=== PATIENT | female | born 1985 | race Caucasian/White ===

== ENCOUNTER 2016-12-12 07:30 | Emergency (ER) | payer OTHER ==
[~2016-12-12] VITALS: Ht 157.5 cm; Wt 68.2 kg
[2016-12-12] MEDS ORDERED: SODIUM CHLORIDE 0.9% 1,000 ML IV ONE (08:20)
[2016-12-12] MEDS ORDERED: KETOROLAC TROMETHAMINE 30 MG/ML VIAL IVP ONE (08:30)
[2016-12-12] MEDS ORDERED: ONDANSETRON HCL 4 MG/2 ML VIAL IVP ONE (08:30)
[2016-12-12 08:36] LABS: BASOPHILS # (AUTO) 0.05 K/uL (0.00-0.20); BASOPHILS % (AUTO) 0.5 % (0.0-2.0); EOSINOPHILS # (AUTO) 0.15 K/uL (0.00-0.70); EOSINOPHILS % (AUTO) 1.55 % (1.0-6.0); HEMOGLOBIN 11.8 g/dL (12.0-16.0); LYMPHOCYTES # (AUTO) 2.6 K/uL (1.0-4.8); LYMPHOCYTES % (AUTO) 26.3 % (22.0-44.0); MEAN CORPUSCULAR HEMOGLOBIN 32.1 pg (26.0-34.0); MEAN CORPUSCULAR HGB CONC 33.7 G/dL (31.0-37.0); MEAN CORPUSCULAR VOLUME 95 fL (80-100); MONOCYTES # (AUTO) 0.6 K/uL (0.1-1.0); NEUTROPHILS # (AUTO) 6.5 K/uL (1.8-7.7); NEUTROPHILS % (AUTO) 65.7 % (40.0-70.0); PLATELET COUNT (AUTO) 165 K/uL (150-450); RED BLOOD CELL COUNT(AUTO) 3.67 MIL/uL (4.00-5.20); WHITE BLOOD COUNT (AUTO) 9.9 K/uL (4.5-11.0)
[2016-12-12 08:45] LABS: ANION GAP 7 mmol/L (8-16); CARBON DIOXIDE 26 mmol/L (22-29); CHLORIDE 104 mmol/L (98-107); CREATININE 0.93 mg/dL (0.60-1.30); GLOMERULAR FILTR. RATE CALC > 60 mL/min (>60); POTASSIUM 3.7 mmol/L (3.5-5.1); SODIUM SERUM 137 mmol/L (136-145); UREA NITROGEN, BLOOD 10 mg/dL (7-18)
[2016-12-12 09:12] LABS: ALANINE AMINOTRANSFERASE 21 U/L (12-78); ALBUMIN 3.1 g/dL (3.4-5.0); ASPARTATE AMINOTRANSFERASE 15 U/L (15-37); BILIRUBIN,TOTAL 0.2 mg/dL (0.1-1.0); TOTAL PROTEIN, SERUM 6.7 g/dL (6.4-8.2)
[2016-12-12 09:20] LABS: APPEARANCE,URINE CLOUDY (CLEAR); GLUCOSE, URINE (UA) NEGATIVE (NEGATIVE); KETONES,URINE NEGATIVE (NEGATIVE); LEUKOCYTE ESTERASE ,URINE NEGATIVE (NEGATIVE); OCCULT BLOOD,URINE NEGATIVE (NEGATIVE); PROTEIN,URINE NEGATIVE (NEGATIVE)
[2016-12-12 09:41] LABS: ADD UA MICROSCOPIC YES
[2016-12-12 09:42] LABS: RBC,URINE 0-2 /HPF (0-2); SQUAMOUS EPITHELIAL CELL,UR Few /LPF (None Seen); WBC,URINE 0-2 /HPF (0-5)
[2016-12-12] MEDS ORDERED: NITROFURANTOIN/NITROFURAN MAC 100 MG CAPSULE [MACROBID] PO ONE (10:15)
[2016-12-12] MEDS ORDERED: CEPHALEXIN MONOHYDRATE 500 MG CAPSULE PO ONE (10:45)
[2016-12-12 10:50] VITALS: BP 120/74
[2016-12-17 02:11] LABS: GC DNA N.A. AMPLIFY Negative (Negative)
== END 2016-12-12 11:33 | disposition home or self-care (01) ==
LOC: EMS 07:34
DX: O23.41 Unspecified infection of urinary tract in pregnancy, first trimester (principal); Z64.0 Problems related to unwanted pregnancy; Z3A.00 Weeks of gestation of pregnancy not specified
CPT/HCPCS: 36415; 71010; 80053; 81001; 83690; 84702; 85025; 87077; 87086; 87186; 87491; 87591; 96361; 96374; 96375; 99285; J1885; J2405; J7030

== ENCOUNTER 2017-05-20 15:47 | Emergency (ER) | payer OTHER ==
[~2017-05-20] VITALS: Ht 160 cm; Wt 63.6 kg
[2017-05-20 16:30] LABS: APPEARANCE,URINE CLOUDY (CLEAR); BILIRUBIN,URINE NEGATIVE (NEGATIVE); GLUCOSE, URINE (UA) NEGATIVE (NEGATIVE); KETONES,URINE TRACE mg/dL (NEGATIVE); LEUKOCYTE ESTERASE ,URINE MODERATE (NEGATIVE); NITRATE,URINE NEGATIVE (NEGATIVE); OCCULT BLOOD,URINE TRACE (NEGATIVE); PH,URINE 6.5 (5.0-8.0); PROTEIN,URINE NEGATIVE (NEGATIVE)
[2017-05-20 16:45] LABS: BACTERIA,URINE Few /HPF (None Seen); RBC,URINE 0-2 /HPF (0-2); SQUAMOUS EPITHELIAL CELL,UR Many /LPF (None Seen)
[2017-05-20] MEDS ORDERED: SODIUM CHLORIDE 0.9% 1,000 ML IV ONE (16:45)
[2017-05-20] MEDS ORDERED: KETOROLAC TROMETHAMINE 30 MG/ML VIAL IVP ONE (16:45)
[2017-05-20] MEDS ORDERED: ONDANSETRON HCL 4 MG/2 ML VIAL IVP ONE (17:00)
[2017-05-20 17:04] LABS: BASOPHILS % (AUTO) 0.4 % (0.0-2.0); EOSINOPHILS % (AUTO) 0.1 % (1.0-6.0); HEMATOCRIT 37.9 % (36-46); HEMOGLOBIN 12.7 g/dL (12.0-16.0); LYMPHOCYTES # (AUTO) 0.7 K/uL (1.0-4.8); LYMPHOCYTES % (AUTO) 10.1 % (22.0-44.0); MEAN CORPUSCULAR HEMOGLOBIN 31.1 pg (26.0-34.0); MEAN CORPUSCULAR HGB CONC 33.5 G/dL (31.0-37.0); MEAN CORPUSCULAR VOLUME 93 fL (80-100); MONOCYTES % (AUTO) 13.8 % (2.0-9.0); NEUTROPHILS # (AUTO) 5.3 K/uL (1.8-7.7); NEUTROPHILS % (AUTO) 75.6 % (40.0-70.0); PLATELET COUNT (AUTO) 183 K/uL (150-450); RED BLOOD CELL COUNT(AUTO) 4.07 MIL/uL (4.00-5.20); RED CELL DISTRIBUTION WIDTH 13.6 % (11.5-14.5)
[2017-05-20 17:10] LABS: ANION GAP 12 mmol/L (8-16); CALCIUM, TOTAL 8.9 mg/dL (8.8-10.5); CARBON DIOXIDE 26 mmol/L (22-29); CHLORIDE 103 mmol/L (98-107); CREATININE 1.01 mg/dL (0.60-1.30); GLOMERULAR FILTR. RATE CALC > 60 mL/min (>60); GLUCOSE,RANDOM 76 mg/dL (70-110); POTASSIUM 3.6 mmol/L (3.5-5.1); SODIUM SERUM 141 mmol/L (136-145); UREA NITROGEN, BLOOD 11 mg/dL (7-18)
[2017-05-20 17:15] LABS: ALANINE AMINOTRANSFERASE 32 U/L (12-78); ALBUMIN 3.9 g/dL (3.4-5.0); ALKALINE PHOSPHATASE 54 U/L (46-116); ASPARTATE AMINOTRANSFERASE 24 U/L (15-37); BILIRUBIN,TOTAL 0.3 mg/dL (0.1-1.0); TOTAL PROTEIN, SERUM 7.3 g/dL (6.4-8.2)
[2017-05-20 19:19] VITALS: BP 110/78
[2017-06-13] MEDS ORDERED: PANT40TA25 PO (18:41)
== END 2017-05-20 19:20 | disposition home or self-care (01) ==
LOC: EMS 15:49
DX: N39.0 Urinary tract infection, site not specified (principal); J02.9 Acute pharyngitis, unspecified; F17.200 Nicotine dependence, unspecified, uncomplicated
CPT/HCPCS: 36415; 76856; 80053; 81001; 84703; 85025; 87077; 87086; 87186; 96361; 96374; 96375; 99285; J1885; J2405; J7030

== ENCOUNTER 2017-09-05 07:26 | Emergency (ER) | payer OTHER ==
[~2017-09-05] VITALS: Ht 157.5 cm; Wt 63.6 kg
[~2017-09-05 07:26] MED LIST: PANT40TA25 PO
[2017-09-05 07:28] VITALS: BP 101/84
[2017-09-05 08:19] LABS: APPEARANCE,URINE CLEAR (CLEAR); BILIRUBIN,URINE NEGATIVE (NEGATIVE); GLUCOSE, URINE (UA) NEGATIVE (NEGATIVE); KETONES,URINE NEGATIVE (NEGATIVE); LEUKOCYTE ESTERASE ,URINE NEGATIVE (NEGATIVE); NITRATE,URINE NEGATIVE (NEGATIVE); OCCULT BLOOD,URINE NEGATIVE (NEGATIVE); PROTEIN,URINE NEGATIVE (NEGATIVE); UROBILINOGEN,URINE 0.2 mg/dL (<=1.0)
== END 2017-09-05 09:39 | disposition left against medical advice (07) ==
LOC: EMS 07:28
DX: R10.10 Upper abdominal pain, unspecified (principal); R11.2 Nausea with vomiting, unspecified; F12.90 Cannabis use, unspecified, uncomplicated; Z53.21 Procedure and treatment not carried out due to patient leaving prior to being seen by health care provider

== ENCOUNTER 2018-02-07 16:49 | Emergency (ER) | payer SELFPAY ==
[~2018-02-07] VITALS: Ht 157.5 cm; Wt 156.0 kg
[2018-02-07] MEDS ORDERED: LIDOCAINE 1% 10 ML VIAL INJ ONE (18:00)
[2018-02-07] MEDS ORDERED: POVIDONE-IODINE 10% 15 ML SOLUTION UD TP ONE (18:00)
[2018-02-07] MEDS ORDERED: HYDROCODONE/ACETAMINOPHEN 5-325 MG TABLET PO ONE (18:15)
[2018-02-07 20:36] VITALS: BP 119/71
== END 2018-02-07 20:45 | disposition home or self-care (01) ==
LOC: EMS 16:50
DX: L02.411 Cutaneous abscess of right axilla (principal); F12.90 Cannabis use, unspecified, uncomplicated
CPT/HCPCS: 10060; 99283; J3490

== ENCOUNTER → 2018-06-14 | Emergency (ER) | payer MEDICAID ==
[~2018-06-14] VITALS: Ht 157.5 cm; Wt 68.2 kg
[~2018-06-14] MED LIST changes: +DEXAMETHASONE SOD PHOS 4 MG/ML 5 ML VIAL IM ONE; -PANT40TA25 PO
[2018-06-14 13:07] VITALS: BP 129/85
== END | disposition home or self-care (01) ==
LOC: EMS 09:59
DX: R21 Rash and other nonspecific skin eruption (principal); R42 Dizziness and giddiness; H57.9 Unspecified disorder of eye and adnexa; F12.90 Cannabis use, unspecified, uncomplicated; Z87.891 Personal history of nicotine dependence
CPT/HCPCS: 96372; 99283; J1100

== ENCOUNTER 2019-03-17 09:23 | Emergency (ER) | payer MEDICAID, OTHER ==
[~2019-03-17] VITALS: Ht 160 cm; Wt 74.1 kg
[2019-03-17 11:17] LABS: EOSINOPHILS % (AUTO) 2.4 % (1.0-6.0); HEMATOCRIT 42.6 % (36-46); HEMOGLOBIN 14.1 g/dL (12.0-16.0); LYMPHOCYTES # (AUTO) 3.1 K/uL (1.0-4.8); LYMPHOCYTES % (AUTO) 46.3 % (22.0-44.0); MEAN CORPUSCULAR HEMOGLOBIN 32.4 pg (26.0-34.0); MEAN CORPUSCULAR VOLUME 98 fL (80-100); MONOCYTES # (AUTO) 0.5 K/uL (0.1-1.0); MONOCYTES % (AUTO) 7.9 % (2.0-9.0); NEUTROPHILS # (AUTO) 2.8 K/uL (1.8-7.7); NEUTROPHILS % (AUTO) 42.4 % (40.0-70.0); PLATELET COUNT (AUTO) 183 K/uL (150-450); RED BLOOD CELL COUNT(AUTO) 4.34 MIL/uL (4.00-5.20); RED CELL DISTRIBUTION WIDTH 12.7 % (11.5-14.5)
[2019-03-17 11:30] LABS: ANION GAP 2 mmol/L (8-16); CALCIUM, TOTAL 8.9 mg/dL (8.8-10.5); CARBON DIOXIDE 32 mmol/L (22-29); CHLORIDE 108 mmol/L (98-107); CREATININE 0.85 mg/dL (0.60-1.30); GLOMERULAR FILTR. RATE CALC > 60 mL/min (>60); GLUCOSE,RANDOM 75 mg/dL (70-110); POTASSIUM 4.3 mmol/L (3.5-5.1); SODIUM SERUM 142 mmol/L (136-145)
[2019-03-17 11:40] LABS: ALANINE AMINOTRANSFERASE 24 U/L (12-78); ALBUMIN 3.7 g/dL (3.4-5.0); ALKALINE PHOSPHATASE 53 U/L (46-116); ASPARTATE AMINOTRANSFERASE 21 U/L (15-37); BILIRUBIN,TOTAL 0.2 mg/dL (0.1-1.0); HCG,QUANTITATIVE < 1 mIU/mL (0-6); LIPASE 245 U/L (73-393); TOTAL PROTEIN, SERUM 7.2 g/dL (6.4-8.2)
[2019-03-17 11:55] LABS: UREA NITROGEN, BLOOD 12 mg/dL (7-18)
[2019-03-17 14:24] VITALS: BP 108/65
== END 2019-03-17 14:25 | disposition home or self-care (01) ==
LOC: EMS 09:27
DX: S83.92XA Sprain of unspecified site of left knee, initial encounter (principal); B96.81 Helicobacter pylori [H. pylori] as the cause of diseases classified elsewhere; F12.90 Cannabis use, unspecified, uncomplicated; R11.2 Nausea with vomiting, unspecified; R10.84 Generalized abdominal pain; W19.XXXA Unspecified fall, initial encounter; Y93.89 Activity, other specified; Y92.89 Other specified places as the place of occurrence of the external cause; Y99.8 Other external cause status

== ENCOUNTER 2019-06-22 13:29 | Emergency (ER) | payer OTHER ==
[~2019-06-22] VITALS: Ht 160 cm; Wt 72.7 kg
[2019-06-22 14:18] VITALS: BP 135/83
== END 2019-06-22 14:29 | disposition home or self-care (01) ==
LOC: EMS 13:32
DX: L08.9 Local infection of the skin and subcutaneous tissue, unspecified (principal); F12.90 Cannabis use, unspecified, uncomplicated; Z48.02 Encounter for removal of sutures

== ENCOUNTER 2021-07-04 14:15 | Emergency (ER) | payer OTHER ==
[~2021-07-04] VITALS: Ht 157.5 cm; Wt 52.3 kg
[2021-07-04 17:31] LABS: COVID AG,FIA SOURCE NASOPHARYNGEAL
[2021-07-04] MEDS ORDERED: GABA-1181 PO (18:56)
[2021-07-04 19:07] VITALS: BP 109/68
== END 2021-07-04 19:19 | disposition home or self-care (01) ==
LOC: EMS 14:18
DX: G62.9 Polyneuropathy, unspecified (principal); Z20.822 Contact with and (suspected) exposure to COVID-19
CPT/HCPCS: 99283

== ENCOUNTER 2021-11-11 00:28 | Emergency (ER) | payer OTHER ==
[~2021-11-11] VITALS: Ht 162.6 cm; Wt 75.0 kg
[~2021-11-11 00:28] MED LIST changes: -DEXAMETHASONE SOD PHOS 4 MG/ML 5 ML VIAL IM ONE; +GABA-1181 PO
[2021-11-11 01:14] LABS: BASOPHILS % (AUTO) 0.7 % (0.0-2.0); EOSINOPHILS % (AUTO) 1.7 % (1.0-6.0); HEMOGLOBIN 13.6 g/dL (12.0-16.0); LYMPHOCYTES # (AUTO) 3.6 K/uL (1.0-4.8); LYMPHOCYTES % (AUTO) 31.3 % (22.0-44.0); MEAN CORPUSCULAR HGB CONC 33.9 G/dL (31.0-37.0); MEAN CORPUSCULAR VOLUME 94 fL (80-100); MONOCYTES # (AUTO) 0.7 K/uL (0.1-1.0); MONOCYTES % (AUTO) 5.9 % (2.0-9.0); NEUTROPHILS # (AUTO) 6.9 K/uL (1.8-7.7); NEUTROPHILS % (AUTO) 60.4 % (40.0-70.0); PLATELET COUNT (AUTO) 229 K/uL (150-450); RED BLOOD CELL COUNT(AUTO) 4.23 MIL/uL (4.00-5.20); RED CELL DISTRIBUTION WIDTH 12.9 % (11.5-14.5)
[2021-11-11 01:25] LABS: ANION GAP 11 mmol/L (8-16); CALCIUM, TOTAL 9.3 mg/dL (8.8-10.5); CARBON DIOXIDE 25 mmol/L (22-29); CHLORIDE 103 mmol/L (98-107); CREATININE 1.01 mg/dL (0.60-1.30); GLUCOSE,RANDOM 91 mg/dL (70-110); POTASSIUM 3.9 mmol/L (3.5-5.1); SODIUM SERUM 139 mmol/L (136-145); UREA NITROGEN, BLOOD 11 mg/dL (7-18)
[2021-11-11 01:34] LABS: GLOMERULAR FILTR. RATE CALC > 60 mL/min (>60)
[2021-11-11 01:37] LABS: ALANINE AMINOTRANSFERASE 22 U/L (12-78); ALBUMIN 4.1 g/dL (3.4-5.0); ALKALINE PHOSPHATASE 66 U/L (46-116); ASPARTATE AMINOTRANSFERASE 17 U/L (15-37); BILIRUBIN,TOTAL 0.3 mg/dL (0.1-1.0); HCG,QUANTITATIVE 878 mIU/mL (0-6)
[2021-11-11] MEDS ORDERED: ACETAMINOPHEN 500 MG TABLET PO ONE (02:00)
[2021-11-11 02:10] VITALS: BP 137/92
== END 2021-11-11 02:33 | disposition home or self-care (01) ==
LOC: EMS 00:34
DX: O26.891 Other specified pregnancy related conditions, first trimester (principal); O99.341 Other mental disorders complicating pregnancy, first trimester; R07.89 Other chest pain; F41.9 Anxiety disorder, unspecified; Z3A.01 Less than 8 weeks gestation of pregnancy
CPT/HCPCS: 80053; 84484; 84702; 85025; 93005; 99284

== ENCOUNTER 2022-01-07 08:41 | Emergency (ER) | payer OTHER ==
[~2022-01-07] VITALS: Ht 157.5 cm; Wt 68.2 kg
[2022-01-07 08:44] VITALS: BP 117/78
[2022-01-07] MEDS ORDERED: CEPHALEXIN MONOHYDRATE 500 MG CAPSULE PO ONE (09:00)
[2022-01-07] MEDS ORDERED: HYDROGEN PEROXIDE 118 ML SOLUTION TP ONE (09:00)
[2022-01-07] MEDS ORDERED: BACITRACIN ZINC/POLYMYXIN B 14.2 GM OINTMENT TP ONE (09:00)
[2022-01-07] MEDS: PERTUSS(ACELL),DIPH,TET VAC/PF 0.5 ML SYRINGE IM. ONE ×2 (09:11→09:19)
[2022-01-07] MEDS ORDERED: BACI28OI29 TP (09:42)
[2022-01-07] MEDS ORDERED: CEPH-558 PO (09:42)
[2022-01-07] MEDS ORDERED: IBUP-1554 PO (09:42)
== END 2022-01-07 10:03 | disposition home or self-care (01) ==
LOC: EMS 08:41
DX: S90.822A Blister (nonthermal), left foot, initial encounter (principal); L03.116 Cellulitis of left lower limb; Z98.890 Other specified postprocedural states; X58.XXXA Exposure to other specified factors, initial encounter; Y99.8 Other external cause status; Y93.89 Activity, other specified; Y92.89 Other specified places as the place of occurrence of the external cause
CPT/HCPCS: 90471; 90715; 97597; 99285

== ENCOUNTER 2022-01-16 17:09 | Emergency (ER) | payer OTHER ==
[~2022-01-16] VITALS: Ht 157.5 cm; Wt 72.7 kg
[~2022-01-16 17:09] MED LIST changes: +BACI28OI29 TP; +CEPH-558 PO; -GABA-1181 PO; +IBUP-1554 PO
[2022-01-16 18:30] LABS: BASOPHILS % (AUTO) 1.4 % (0.0-2.0); EOSINOPHILS % (AUTO) 3.9 % (1.0-6.0); HEMATOCRIT 37.6 % (36-46); HEMOGLOBIN 12.7 g/dL (12.0-16.0); LYMPHOCYTES # (AUTO) 3.3 K/uL (1.0-4.8); LYMPHOCYTES % (AUTO) 46.5 % (22.0-44.0); MEAN CORPUSCULAR HGB CONC 33.8 G/dL (31.0-37.0); MEAN CORPUSCULAR VOLUME 95 fL (80-100); MONOCYTES # (AUTO) 0.5 K/uL (0.1-1.0); MONOCYTES % (AUTO) 7.2 % (2.0-9.0); NEUTROPHILS # (AUTO) 2.9 K/uL (1.8-7.7); PLATELET COUNT (AUTO) 196 K/uL (150-450); RED BLOOD CELL COUNT(AUTO) 3.97 MIL/uL (4.00-5.20); RED CELL DISTRIBUTION WIDTH 13.6 % (11.5-14.5)
[2022-01-16] MEDS ORDERED: KETOROLAC TROMETHAMINE 30 MG/ML VIAL IM ONE (18:30)
[2022-01-16 18:41] LABS: ANION GAP 11 mmol/L (8-16); CALCIUM, TOTAL 9.1 mg/dL (8.8-10.5); CARBON DIOXIDE 24 mmol/L (22-29); CHLORIDE 108 mmol/L (98-107); CREATININE 0.95 mg/dL (0.60-1.30); GLUCOSE,RANDOM 96 mg/dL (70-110); SODIUM SERUM 143 mmol/L (136-145); UREA NITROGEN, BLOOD 10 mg/dL (7-18)
[2022-01-16 18:44] LABS: GLOMERULAR FILTR. RATE CALC > 60 mL/min (>60)
[2022-01-16 18:55] LABS: ALANINE AMINOTRANSFERASE 18 U/L (12-78); ALBUMIN 3.6 g/dL (3.4-5.0); ALKALINE PHOSPHATASE 55 U/L (46-116); ASPARTATE AMINOTRANSFERASE 24 U/L (15-37); BILIRUBIN,TOTAL 0.1 mg/dL (0.1-1.0); HCG,QUANTITATIVE < 1 mIU/mL (0-6); THYROID STIMULATING HORMONE 0.49 uIU/mL (0.36-3.74); TOTAL PROTEIN, SERUM 7.4 g/dL (6.4-8.2)
[2022-01-16 19:17] LABS: COVID AG,FIA SOURCE NASOPHARYNGEAL
[2022-01-16 19:26] LABS: AMPHET/METH SCREEN,URINE NEGATIVE (NEGATIVE); BARBITURATE SCREEN, URINE NEGATIVE (NEGATIVE); BENZODIAZEPINES SCREEN,URINE NEGATIVE (NEGATIVE); CANNABINOID SCREEN,URINE NEGATIVE (NEGATIVE); COCAINE SCREEN,URINE NEGATIVE (NEGATIVE); METHADONE SCREEN, URINE NEGATIVE (NEGATIVE); OPIATE SCREEN,URINE NEGATIVE (NEGATIVE)
[2022-01-16 19:28] LABS: PHENCYCLIDINE SCREEN,URINE NEGATIVE (NEGATIVE)
[2022-01-17 08:00] VITALS: BP 116/73
== END 2022-01-17 08:57 | disposition home or self-care (01) ==
LOC: EMS 17:09
DX: M25.562 Pain in left knee (principal); F10.10 Alcohol abuse, uncomplicated; F17.210 Nicotine dependence, cigarettes, uncomplicated; Z20.822 Contact with and (suspected) exposure to COVID-19
CPT/HCPCS: 99284; 87426; 80053; 84443; 84702; 85025; 36415; 73562; 96372; 80307; G0480; J1885; 29530

== ENCOUNTER 2023-03-03 10:34 | Emergency (ER) | payer OTHER ==
[~2023-03-03] VITALS: Ht 160 cm; Wt 68.6 kg
[~2023-03-03 10:34] MED LIST changes: +BACI28.410 TP; -BACI28OI29 TP
[2023-03-03 10:40] VITALS: TEMP 97.9
[2023-03-03 11:06] VITALS: BP 141/71; PULSE 74; RESP 19
[2023-03-03] MEDS ORDERED: KETOROLAC TROMETHAMINE 60 MG/2 ML VIAL IM ONE (12:15)
[2023-03-03] MEDS ORDERED: METHOCARBAMOL 500 MG TABLET PO ONE (12:15)
[2023-03-03] MEDS ORDERED: METH-659 PO (12:26)
[2023-03-03] MEDS ORDERED: IBUP-1492 PO (12:26)
== END 2023-03-03 13:09 | disposition home or self-care (01) ==
LOC: EMS 10:39
DX: G58.9 Mononeuropathy, unspecified (principal); M25.532 Pain in left wrist; F17.210 Nicotine dependence, cigarettes, uncomplicated; Z98.890 Other specified postprocedural states
CPT/HCPCS: 99283; 73110; 96372; J1885

== ENCOUNTER 2023-04-25 19:11 | Emergency (ER) | payer OTHER ==
[~2023-04-25] VITALS: Ht 160 cm; Wt 62.0 kg
[~2023-04-25 19:11] MED LIST changes: -BACI28.410 TP; -CEPH-558 PO; +IBUP-1492 PO; -IBUP-1554 PO; +METH-659 PO
[2023-04-25 19:23] VITALS: TEMP 98.2
[2023-04-25 20:03] LABS: APPEARANCE,URINE CLEAR (CLEAR); BILIRUBIN,URINE NEGATIVE (NEGATIVE); COLOR,URINE LIGHT YELLOW (YELLOW); GLUCOSE, URINE (UA) NEGATIVE (NEGATIVE); KETONES,URINE NEGATIVE (NEGATIVE); LEUKOCYTE ESTERASE ,URINE MODERATE (NEGATIVE); NITRATE,URINE POSITIVE (NEGATIVE); OCCULT BLOOD,URINE TRACE (NEGATIVE); PROTEIN,URINE TRACE mg/dL (NEGATIVE); SPECIFIC GRAVITIY, URINE 1.016 (1.003-1.030); UROBILINOGEN,URINE <=1.0 mg/dL (<=1.0)
[2023-04-25] MEDS ORDERED: KETOROLAC TROMETHAMINE 30 MG/ML VIAL IVP ONE (20:15)
[2023-04-25] MEDS ORDERED: ONDANSETRON HCL 4 MG/2 ML VIAL IVP ONE (20:15)
[2023-04-25] MEDS ORDERED: SODIUM CHLORIDE 0.9% 1,000 ML IV ONE (20:15)
[2023-04-25 20:19] LABS: BACTERIA,URINE Many /HPF (None Seen); RBC,URINE 0-2 /HPF (0-2); SQUAMOUS EPITHELIAL CELL,UR Few /LPF (None Seen)
[2023-04-25 20:23] LABS: BASOPHILS % (AUTO) 0.6 % (0.0-2.0); HEMATOCRIT 38.3 % (36-46); HEMOGLOBIN 12.5 g/dL (12.0-16.0); LYMPHOCYTES # (AUTO) 2.3 K/uL (1.0-4.8); LYMPHOCYTES % (AUTO) 17.2 % (22.0-44.0); MEAN CORPUSCULAR HEMOGLOBIN 32.1 pg (26.0-34.0); MEAN CORPUSCULAR HGB CONC 32.5 G/dL (31.0-37.0); MEAN CORPUSCULAR VOLUME 99 fL (80-100); MONOCYTES # (AUTO) 0.8 K/uL (0.1-1.0); MONOCYTES % (AUTO) 6.4 % (2.0-9.0); NEUTROPHILS # (AUTO) 9.7 K/uL (1.8-7.7); NEUTROPHILS % (AUTO) 73.8 % (40.0-70.0); PLATELET COUNT (AUTO) 198 K/uL (150-450); RED BLOOD CELL COUNT(AUTO) 3.88 MIL/uL (4.00-5.20); RED CELL DISTRIBUTION WIDTH 13.3 % (11.5-14.5); WHITE BLOOD COUNT (AUTO) 13.2 K/uL (4.5-11.0)
[2023-04-25 20:26] LABS: ANION GAP 7 mmol/L (8-16); CALCIUM, TOTAL 8.3 mg/dL (8.8-10.5); CARBON DIOXIDE 27 mmol/L (22-29); CHLORIDE 102 mmol/L (98-107); CREATININE 0.98 mg/dL (0.60-1.30); GLOMERULAR FILTR. RATE CALC > 60 mL/min (>60); GLUCOSE,RANDOM 95 mg/dL (70-110); POTASSIUM 3.5 mmol/L (3.5-5.1); SODIUM SERUM 136 mmol/L (136-145); UREA NITROGEN, BLOOD 10 mg/dL (7-18)
[2023-04-25 20:32] LABS: ALANINE AMINOTRANSFERASE 17 U/L (12-78); ALBUMIN 3.5 g/dL (3.4-5.0); ALKALINE PHOSPHATASE 58 U/L (46-116); ASPARTATE AMINOTRANSFERASE 15 U/L (15-37); BILIRUBIN,TOTAL 0.3 mg/dL (0.1-1.0); LIPASE 29 U/L (16-77); TOTAL PROTEIN, SERUM 7.3 g/dL (6.4-8.2)
[2023-04-25] MEDS ORDERED: MORPHINE SULFATE 4 MG/ML SYRINGE IVP ONE (20:45)
[2023-04-25 21:18] VITALS: BP 109/69; PULSE 69; RESP 16
[2023-04-25] MEDS ORDERED: HYDROCODONE/ACETAMINOPHEN 5-325 MG TABLET PO ONE (22:00)
[2023-04-25] MEDS ORDERED: IBUP-1554 PO (22:01)
[2023-04-25] MEDS ORDERED: HYDR-4723 PO (22:01)
== END 2023-04-25 22:15 | disposition home or self-care (01) ==
LOC: EMS 19:12
DX: N39.0 Urinary tract infection, site not specified (principal); R10.9 Unspecified abdominal pain; F17.210 Nicotine dependence, cigarettes, uncomplicated; R06.02 Shortness of breath; Z98.890 Other specified postprocedural states
CPT/HCPCS: 99285; 74176; 96374; 96375; 96361; 80053; 81001; 83690; 84703; 85025; 36415; 87086; 87186; J1885; J2270; J2405; J7030

== ENCOUNTER 2023-04-29 15:12 | Emergency (ER) | payer OTHER ==
[~2023-04-29] VITALS: Ht 157.5 cm; Wt 59.0 kg
[~2023-04-29 15:12] MED LIST changes: +HYDR-4723 PO; +IBUP-1554 PO
[2023-04-29 16:27] LABS: BASOPHILS % (AUTO) 0.5 % (0.0-2.0); EOSINOPHILS % (AUTO) 0.9 % (1.0-6.0); HEMATOCRIT 35.5 % (36-46); LYMPHOCYTES # (AUTO) 1.9 K/uL (1.0-4.8); LYMPHOCYTES % (AUTO) 23.2 % (22.0-44.0); MEAN CORPUSCULAR HEMOGLOBIN 32.7 pg (26.0-34.0); MEAN CORPUSCULAR HGB CONC 33.7 G/dL (31.0-37.0); MEAN CORPUSCULAR VOLUME 97 fL (80-100); MONOCYTES # (AUTO) 1.2 K/uL (0.1-1.0); MONOCYTES % (AUTO) 15.4 % (2.0-9.0); NEUTROPHILS # (AUTO) 4.8 K/uL (1.8-7.7); PLATELET COUNT (AUTO) 183 K/uL (150-450); RED BLOOD CELL COUNT(AUTO) 3.66 MIL/uL (4.00-5.20); RED CELL DISTRIBUTION WIDTH 13.2 % (11.5-14.5)
[2023-04-29 16:34] LABS: ANION GAP 5 mmol/L (8-16); CALCIUM, TOTAL 9.2 mg/dL (8.8-10.5); CARBON DIOXIDE 31 mmol/L (22-29); CHLORIDE 100 mmol/L (98-107); CREATININE 1.13 mg/dL (0.60-1.30); GLOMERULAR FILTR. RATE CALC 55 mL/min (>60); GLUCOSE,RANDOM 88 mg/dL (70-110); POTASSIUM 3.4 mmol/L (3.5-5.1); SODIUM SERUM 136 mmol/L (136-145); UREA NITROGEN, BLOOD 14 mg/dL (7-18)
[2023-04-29 16:44] LABS: APPEARANCE,URINE HAZY (CLEAR); BILIRUBIN,URINE NEGATIVE (NEGATIVE); COLOR,URINE YELLOW (YELLOW); GLUCOSE, URINE (UA) NEGATIVE (NEGATIVE); LEUKOCYTE ESTERASE ,URINE LARGE (NEGATIVE); NITRATE,URINE POSITIVE (NEGATIVE); OCCULT BLOOD,URINE MODERATE (NEGATIVE); PROTEIN,URINE 30-70 mg/dL (NEGATIVE); SPECIFIC GRAVITIY, URINE 1.029 (1.003-1.030)
[2023-04-29 16:47] LABS: ALANINE AMINOTRANSFERASE 17 U/L (12-78); ALKALINE PHOSPHATASE 65 U/L (46-116); ASPARTATE AMINOTRANSFERASE 13 U/L (15-37); BILIRUBIN,TOTAL 0.4 mg/dL (0.1-1.0); HCG,QUANTITATIVE < 1 mIU/mL (0-6); LIPASE 17 U/L (16-77); TOTAL PROTEIN, SERUM 7.5 g/dL (6.4-8.2)
[2023-04-29 17:01] LABS: SQUAMOUS EPITHELIAL CELL,UR Many /LPF (None Seen)
[2023-04-29 17:02] LABS: BACTERIA,URINE Many /HPF (None Seen); RBC,URINE 0-2 /HPF (0-2); WBC,URINE 26-50 /HPF (0-5)
[2023-04-29] MEDS ORDERED: SULFAMETHOX/TRIMETH DS 800-160 MG/TABLET PO ONE (17:15)
[2023-04-29 17:35] VITALS: BP 107/62; PULSE 89; RESP 18; TEMP 99
[2023-04-29] MEDS ORDERED: PHEN-674 PO (17:38)
[2023-04-29] MEDS ORDERED: TRAM-559 PO (17:38)
[2023-04-29] MEDS ORDERED: SULF-261 PO (17:38)
== END 2023-04-29 17:55 | disposition home or self-care (01) ==
LOC: EMS 15:23
DX: N39.0 Urinary tract infection, site not specified (principal); R11.2 Nausea with vomiting, unspecified; F12.90 Cannabis use, unspecified, uncomplicated; Z98.890 Other specified postprocedural states
CPT/HCPCS: 80053; 81001; 83690; 84702; 85025; 87086; 87186; 99283

== ENCOUNTER 2023-05-07 08:54 | Emergency (ER) | payer OTHER ==
[~2023-05-07] VITALS: Ht 160 cm; Wt 63.6 kg
[~2023-05-07 08:54] MED LIST changes: +PHEN-674 PO; +SULF-261 PO; +TRAM-559 PO
[2023-05-07 08:58] VITALS: TEMP 98.2
[2023-05-07 09:40] VITALS: BP 112/76; PULSE 97; RESP 16
[2023-05-07 09:54] LABS: APPEARANCE,URINE CLEAR (CLEAR); BILIRUBIN,URINE NEGATIVE (NEGATIVE); COLOR,URINE YELLOW (YELLOW); GLUCOSE, URINE (UA) NEGATIVE (NEGATIVE); KETONES,URINE NEGATIVE (NEGATIVE); LEUKOCYTE ESTERASE ,URINE NEGATIVE (NEGATIVE); NITRATE,URINE NEGATIVE (NEGATIVE); OCCULT BLOOD,URINE NEGATIVE (NEGATIVE); PROTEIN,URINE NEGATIVE (NEGATIVE); SPECIFIC GRAVITIY, URINE 1.022 (1.003-1.030); UROBILINOGEN,URINE <=1.0 mg/dL (<=1.0)
[2023-05-07] MEDS ORDERED: KETOROLAC TROMETHAMINE 60 MG/2 ML VIAL IM ONE (10:15)
[2023-05-07 10:48] LABS: COVID AG,FIA SOURCE NASAL SWAB
[2023-05-07 11:10] LABS: SARS-COV2 (COVID) ANTIGEN,FIA Negative (Negative)
[2023-05-07 11:11] LABS: INFLUENZA TYPE A NEGATIVE FOR TYPE A (NEGATIVE); INFLUENZA TYPE B NEGATIVE FOR TYPE B (NEGATIVE)
[2023-05-07] MEDS ORDERED: METH-659 PO (11:17)
[2023-05-07] MEDS ORDERED: IBUP-1492 PO (11:17)
== END 2023-05-07 11:22 | disposition home or self-care (01) ==
LOC: EMS 08:54
DX: S39.012A Strain of muscle, fascia and tendon of lower back, initial encounter (principal); F12.90 Cannabis use, unspecified, uncomplicated; Z98.890 Other specified postprocedural states; Z20.822 Contact with and (suspected) exposure to COVID-19; X58.XXXA Exposure to other specified factors, initial encounter; Y93.89 Activity, other specified; Y92.89 Other specified places as the place of occurrence of the external cause; Y99.8 Other external cause status
CPT/HCPCS: 99284; 71045; 87426; 81003; 87804; 96372; J1885

== ENCOUNTER 2023-05-13 11:41 | Emergency (ER) | payer OTHER ==
[~2023-05-13] VITALS: Ht 157.5 cm; Wt 63.6 kg
[2023-05-13 11:51] VITALS: TEMP 97.7
[2023-05-13 12:44] LABS: BASOPHILS % (AUTO) 0.8 % (0.0-2.0); EOSINOPHILS % (AUTO) 1.8 % (1.0-6.0); HEMATOCRIT 36.2 % (36-46); HEMOGLOBIN 11.9 g/dL (12.0-16.0); LYMPHOCYTES % (AUTO) 42.1 % (22.0-44.0); MEAN CORPUSCULAR HEMOGLOBIN 32.2 pg (26.0-34.0); MEAN CORPUSCULAR HGB CONC 32.9 G/dL (31.0-37.0); MEAN CORPUSCULAR VOLUME 98 fL (80-100); MONOCYTES # (AUTO) 0.4 K/uL (0.1-1.0); MONOCYTES % (AUTO) 5.3 % (2.0-9.0); NEUTROPHILS # (AUTO) 3.6 K/uL (1.8-7.7); PLATELET COUNT (AUTO) 374 K/uL (150-450); RED CELL DISTRIBUTION WIDTH 13.6 % (11.5-14.5); WHITE BLOOD COUNT (AUTO) 7.2 K/uL (4.5-11.0)
[2023-05-13 12:53] LABS: CALCIUM, TOTAL 9.4 mg/dL (8.8-10.5); CREATININE 1.04 mg/dL (0.60-1.30); POTASSIUM 3.7 mmol/L (3.5-5.1)
[2023-05-13 12:59] LABS: ALBUMIN 3.6 g/dL (3.4-5.0); BILIRUBIN,TOTAL 0.4 mg/dL (0.1-1.0); TOTAL PROTEIN, SERUM 7.7 g/dL (6.4-8.2)
[2023-05-13 13:01] LABS: TROPONIN I-HIGH SENSITIVITY Less Than 4 ng/L (<51)
[2023-05-13] MEDS ORDERED: MAG HYDROX/ALUMINUM HYD/SIMETH 30 ML SUSPENSION UDCUP PO ONE (15:30)
[2023-05-13] MEDS ORDERED: FAMOTIDINE 20 MG TABLET PO ONE (15:30)
[2023-05-13] MEDS ORDERED: ONDANSETRON HCL 4 MG TABLET PO ONE (15:30)
[2023-05-13] MEDS ORDERED: ACETAMINOPHEN 325 MG TABLET PO ONE (15:30)
[2023-05-13 16:10] VITALS: BP 114/90; PULSE 78; RESP 18
[2023-05-13 16:35] LABS: COVID AG,FIA SOURCE NASAL SWAB
[2023-05-13 16:37] LABS: APPEARANCE,URINE CLEAR (CLEAR); BILIRUBIN,URINE NEGATIVE (NEGATIVE); COLOR,URINE LIGHT YELLOW (YELLOW); GLUCOSE, URINE (UA) NEGATIVE (NEGATIVE); KETONES,URINE NEGATIVE (NEGATIVE); LEUKOCYTE ESTERASE ,URINE NEGATIVE (NEGATIVE); NITRATE,URINE NEGATIVE (NEGATIVE); OCCULT BLOOD,URINE NEGATIVE (NEGATIVE); PROTEIN,URINE NEGATIVE (NEGATIVE); SPECIFIC GRAVITIY, URINE 1.018 (1.003-1.030); UROBILINOGEN,URINE <=1.0 mg/dL (<=1.0)
[2023-05-13 16:46] LABS: INFLUENZA TYPE A NEGATIVE FOR TYPE A (NEGATIVE); INFLUENZA TYPE B NEGATIVE FOR TYPE B (NEGATIVE)
[2023-05-13 16:48] LABS: SARS-COV2 (COVID) ANTIGEN,FIA Negative (Negative)
== END 2023-05-13 17:35 | disposition home or self-care (01) ==
LOC: EMS 11:41
DX: R07.89 Other chest pain (principal); F12.90 Cannabis use, unspecified, uncomplicated; Z98.890 Other specified postprocedural states; Z20.822 Contact with and (suspected) exposure to COVID-19
CPT/HCPCS: 99285; 71045; 87426; 80053; 81003; 84484; 84703; 85025; 87804; 36415; 93005; Q0162

== ENCOUNTER 2023-06-23 18:52 | Emergency (ER) | payer OTHER ==
[~2023-06-23] VITALS: Ht 157.5 cm; Wt 65.5 kg
[~2023-06-23 18:52] MED LIST changes: -HYDR-4723 PO; -IBUP-1554 PO; -PHEN-674 PO; -SULF-261 PO
[2023-06-23 19:05] VITALS: BP 115/93; PULSE 83; RESP 15; TEMP 98.1
[2023-06-23 19:56] LABS: APPEARANCE,URINE CLEAR (CLEAR); BILIRUBIN,URINE NEGATIVE (NEGATIVE); COLOR,URINE YELLOW (YELLOW); GLUCOSE, URINE (UA) NEGATIVE (NEGATIVE); KETONES,URINE NEGATIVE (NEGATIVE); LEUKOCYTE ESTERASE ,URINE NEGATIVE (NEGATIVE); NITRATE,URINE NEGATIVE (NEGATIVE); OCCULT BLOOD,URINE NEGATIVE (NEGATIVE); PROTEIN,URINE TRACE mg/dL (NEGATIVE); SPECIFIC GRAVITIY, URINE 1.031 (1.003-1.030)
[2023-06-23 20:01] LABS: BASOPHILS % (AUTO) 1.5 % (0.0-2.0); EOSINOPHILS % (AUTO) 3.7 % (1.0-6.0); HEMATOCRIT 40.7 % (36-46); HEMOGLOBIN 13.2 g/dL (12.0-16.0); LYMPHOCYTES % (AUTO) 46.6 % (22.0-44.0); MEAN CORPUSCULAR HEMOGLOBIN 31.8 pg (26.0-34.0); MEAN CORPUSCULAR HGB CONC 32.6 G/dL (31.0-37.0); MEAN CORPUSCULAR VOLUME 98 fL (80-100); MONOCYTES # (AUTO) 0.5 K/uL (0.1-1.0); NEUTROPHILS # (AUTO) 2.7 K/uL (1.8-7.7); NEUTROPHILS % (AUTO) 41.2 % (40.0-70.0); PLATELET COUNT (AUTO) 201 K/uL (150-450); RED BLOOD CELL COUNT(AUTO) 4.16 MIL/uL (4.00-5.20); RED CELL DISTRIBUTION WIDTH 13.2 % (11.5-14.5); WHITE BLOOD COUNT (AUTO) 6.5 K/uL (4.5-11.0)
[2023-06-23 20:06] LABS: ALCOHOL, URINE DRUG SCREEN NEGATIVE (NEGATIVE); AMPHET/METH SCREEN,URINE NEGATIVE (NEGATIVE); BARBITURATE SCREEN, URINE NEGATIVE (NEGATIVE); BENZODIAZEPINES SCREEN,URINE NEGATIVE (NEGATIVE); CANNABINOID SCREEN,URINE POSITIVE (NEGATIVE); COCAINE SCREEN,URINE NEGATIVE (NEGATIVE); METHADONE SCREEN, URINE NEGATIVE (NEGATIVE); OPIATE SCREEN,URINE NEGATIVE (NEGATIVE); PHENCYCLIDINE SCREEN,URINE NEGATIVE (NEGATIVE)
[2023-06-23 20:17] LABS: TROPONIN I-HIGH SENSITIVITY 5 ng/L (<51)
== END 2023-06-23 20:26 | disposition left against medical advice (07) ==
LOC: EMS 19:02
DX: R07.89 Other chest pain (principal); Z53.21 Procedure and treatment not carried out due to patient leaving prior to being seen by health care provider
CPT/HCPCS: 80307; 81003; 83690; 84484; 85025; 93005; 99281

== ENCOUNTER 2023-11-21 11:27 | Emergency (ER) | payer OTHER ==
[~2023-11-21] VITALS: Ht 165.1 cm; Wt 63.6 kg
[~2023-11-21 11:27] MED LIST changes: -TRAM-559 PO; +TRAM50TA5 PO
[2023-11-21] MEDS ORDERED: ACET-2247 PO (11:48)
[2023-11-21] MEDS ORDERED: IBUP-1492 PO (11:48)
[2023-11-21 11:58] VITALS: BP 106/74; PULSE 64; RESP 18; TEMP 98.2
[2023-11-21] MEDS: KETOROLAC TROMETHAMINE 30 MG/ML VIAL IM ONE (12:28)
== END 2023-11-21 12:42 | disposition home or self-care (01) ==
LOC: EMS 11:27
DX: S83.92XA Sprain of unspecified site of left knee, initial encounter (principal); F12.90 Cannabis use, unspecified, uncomplicated; W22.8XXA Striking against or struck by other objects, initial encounter; Y93.89 Activity, other specified; Y92.89 Other specified places as the place of occurrence of the external cause; Y99.8 Other external cause status
CPT/HCPCS: 99283; 96372; J1885

== ENCOUNTER 2024-05-11 19:26 | Emergency (ER) | payer OTHER ==
[~2024-05-11] VITALS: Ht 157.5 cm; Wt 61.4 kg
[~2024-05-11 19:26] MED LIST changes: +ACET-2247 PO
[2024-05-11] MEDS ORDERED: IBUP-45 PO (20:09)
[2024-05-11 20:10] VITALS: BP 113/76; PULSE 108; RESP 19; TEMP 98; O2SAT 100
[2024-05-11 20:34] LABS: APPEARANCE,URINE HAZY (CLEAR); BILIRUBIN,URINE NEGATIVE (NEGATIVE); COLOR,URINE YELLOW (YELLOW); GLUCOSE, URINE (UA) NEGATIVE (NEGATIVE); LEUKOCYTE ESTERASE ,URINE SMALL (NEGATIVE); NITRATE,URINE POSITIVE (NEGATIVE); OCCULT BLOOD,URINE SMALL (NEGATIVE); PROTEIN,URINE 30-70 mg/dL (NEGATIVE); SPECIFIC GRAVITIY, URINE 1.022 (1.003-1.030); UROBILINOGEN,URINE <=1.0 mg/dL (<=1.0)
[2024-05-11 20:52] LABS: RBC,URINE 0-2 /HPF (0-2)
[2024-05-11 20:53] LABS: BACTERIA,URINE Moderate /HPF (None Seen); SQUAMOUS EPITHELIAL CELL,UR Few /LPF (None Seen)
[2024-05-11] MEDS ORDERED: ACETAMINOPHEN 500 MG TABLET ONE (21:45)
[2024-05-11] MEDS: ACETAMINOPHEN 500 MG TABLET PO ONE (21:47)
[2024-05-11] MEDS ORDERED: CEPH-558 PO (22:39)
[2024-05-11] MEDS ORDERED: PHEN-846 PO (22:39)
[2024-05-11] MEDS: PHENAZOPYRIDINE HCL 100 MG TABLET PO ONE (22:45)
[2024-05-11] MEDS: CEPHALEXIN MONOHYDRATE 500 MG CAPSULE PO ONE (22:45)
== END 2024-05-11 22:53 | disposition home or self-care (01) ==
LOC: EMS 19:26
DX: N39.0 Urinary tract infection, site not specified (principal); M54.9 Dorsalgia, unspecified; F12.90 Cannabis use, unspecified, uncomplicated
CPT/HCPCS: 81001; 87077; 87086; 99284; Z7502; Z7610

== ENCOUNTER 2024-05-31 19:31 | Emergency (ER) | payer OTHER ==
[~2024-05-31] VITALS: Ht 157.5 cm; Wt 67.3 kg
[~2024-05-31 19:31] MED LIST changes: +CEPH-558 PO; -IBUP-1492 PO; +IBUP-45 PO; -METH-659 PO; +PHEN-846 PO; -TRAM50TA5 PO
[2024-05-31 19:56] VITALS: TEMP 98.3
[2024-05-31 21:17] LABS: BASOPHILS % (AUTO) 0.7 % (0.0-2.0); EOSINOPHILS % (AUTO) 2.4 % (1.0-6.0); HEMATOCRIT 41.3 % (36-46); HEMOGLOBIN 13.4 g/dL (12.0-16.0); LYMPHOCYTES # (AUTO) 3.6 K/uL (1.0-4.8); LYMPHOCYTES % (AUTO) 38.4 % (22.0-44.0); MEAN CORPUSCULAR HEMOGLOBIN 31.4 pg (26.0-34.0); MEAN CORPUSCULAR HGB CONC 32.5 G/dL (31.0-37.0); MEAN CORPUSCULAR VOLUME 97 fL (80-100); MONOCYTES # (AUTO) 0.5 K/uL (0.1-1.0); MONOCYTES % (AUTO) 5.7 % (2.0-9.0); NEUTROPHILS % (AUTO) 52.8 % (40.0-70.0); PLATELET COUNT (AUTO) 277 K/uL (150-450); RED BLOOD CELL COUNT(AUTO) 4.27 MIL/uL (4.00-5.20); WHITE BLOOD COUNT (AUTO) 9.5 K/uL (4.5-11.0)
[2024-05-31 21:28] LABS: CALCIUM, TOTAL 8.9 mg/dL (8.8-10.5); CREATININE 1.2 mg/dL (0.60-1.30); POTASSIUM 3.5 mmol/L (3.5-5.1)
[2024-05-31 21:38] LABS: TROPONIN I-HIGH SENSITIVITY Less Than 4 ng/L (<51)
[2024-06-01 00:30] LABS: AMPHET/METH SCREEN,URINE NEGATIVE (NEGATIVE); APPEARANCE,URINE CLEAR (CLEAR); BARBITURATE SCREEN, URINE NEGATIVE (NEGATIVE); BENZODIAZEPINES SCREEN,URINE NEGATIVE (NEGATIVE); BILIRUBIN,URINE NEGATIVE (NEGATIVE); CANNABINOID SCREEN,URINE POSITIVE (NEGATIVE); COCAINE SCREEN,URINE NEGATIVE (NEGATIVE); COLOR,URINE LIGHT YELLOW (YELLOW); GLUCOSE, URINE (UA) NEGATIVE (NEGATIVE); KETONES,URINE NEGATIVE (NEGATIVE); LEUKOCYTE ESTERASE ,URINE TRACE (NEGATIVE); METHADONE SCREEN, URINE NEGATIVE (NEGATIVE); NITRATE,URINE NEGATIVE (NEGATIVE); OCCULT BLOOD,URINE TRACE (NEGATIVE); OPIATE SCREEN,URINE NEGATIVE (NEGATIVE); PH,URINE 5.5 (5.0-8.0); PH,URINE DRUG SCREEN 5.5 (5.0-8.0); PHENCYCLIDINE SCREEN,URINE NEGATIVE (NEGATIVE); PROTEIN,URINE NEGATIVE (NEGATIVE); SPECIFIC GRAVITIY, URINE 1.025 (1.003-1.030); UROBILINOGEN,URINE <=1.0 mg/dL (<=1.0)
[2024-06-01 00:34] LABS: ALCOHOL, URINE DRUG SCREEN NEGATIVE (NEGATIVE)
[2024-06-01 00:39] LABS: BACTERIA,URINE Moderate /HPF (None Seen); RBC,URINE 0-2 /HPF (0-2); SQUAMOUS EPITHELIAL CELL,UR Moderate /LPF (None Seen); WBC,URINE 0-2 /HPF (0-5)
[2024-06-01 00:44] VITALS: BP 108/75; PULSE 98; RESP 18; O2SAT 100
== END 2024-06-01 01:00 | disposition home or self-care (01) ==
LOC: EMS 19:31
DX: R00.2 Palpitations (principal); F12.90 Cannabis use, unspecified, uncomplicated
CPT/HCPCS: 71045; 80048; 80307; 81001; 83880; 84484; 85025; 87086; 93005; 99285; 36415-L1; 36415-TC

== ENCOUNTER 2024-08-10 20:58 | Emergency (ER) | payer OTHER ==
[~2024-08-10] VITALS: Ht 157.5 cm; Wt 63.6 kg
[2024-08-10 21:40] VITALS: BP 117/76; PULSE 64; RESP 18; TEMP 98.4; O2SAT 100
[2024-08-11] MEDS: HYDROCODONE/ACETAMINOPHEN 5-325 MG TABLET PO ONE (00:36)
[2024-08-11] MEDS ORDERED: HYDR-4072 PO (00:41)
== END 2024-08-11 00:55 | disposition home or self-care (01) ==
LOC: EMS 20:59
DX: K02.9 Dental caries, unspecified (principal); F12.90 Cannabis use, unspecified, uncomplicated; Z98.890 Other specified postprocedural states
CPT/HCPCS: 99283

== ENCOUNTER 2024-08-12 00:55 | Emergency (ER) | payer OTHER ==
[~2024-08-12] VITALS: Ht 157.5 cm; Wt 63.6 kg
[~2024-08-12 00:55] MED LIST changes: +HYDR-4072 PO
[2024-08-12 01:00] VITALS: BP 120/76; PULSE 90; RESP 20; TEMP 98.2; O2SAT 100
[2024-08-12] MEDS: HYDROCODONE/ACETAMINOPHEN 5-325 MG TABLET PO ONE (02:14)
[2024-08-12] MEDS: KETOROLAC TROMETHAMINE 30 MG/ML VIAL IM ONE (02:14)
== END 2024-08-12 02:26 | disposition home or self-care (01) ==
LOC: EMS 01:00
DX: K02.9 Dental caries, unspecified (principal); F12.90 Cannabis use, unspecified, uncomplicated
CPT/HCPCS: 99283; 96372; J1885

== ENCOUNTER → 2024-08-15 | Emergency (ER) | payer OTHER ==
[~2024-08-15] VITALS: Ht 162.6 cm; Wt 58.0 kg
[~2024-08-15] MED LIST changes: +KETOROLAC TROMETHAMINE 30 MG/ML VIAL IM ONE; +METH-659 PO
[2024-08-15 19:43] VITALS: TEMP 98
[2024-08-15 20:00] VITALS: BP 105/71; PULSE 82; RESP 18; O2SAT 100
[2024-08-15] MEDS: KETOROLAC TROMETHAMINE 15 MG/ML VIAL IM ONE (21:13)
== END | disposition home or self-care (01) ==
LOC: EMS 20:51
DX: M62.830 Muscle spasm of back (principal); F12.90 Cannabis use, unspecified, uncomplicated
CPT/HCPCS: 99283; 96372; J1885

== ENCOUNTER 2024-08-20 21:56 | Emergency (ER) | payer OTHER ==
[~2024-08-20] VITALS: Ht 162.6 cm; Wt 64.5 kg
[~2024-08-20 21:56] MED LIST changes: -KETOROLAC TROMETHAMINE 30 MG/ML VIAL IM ONE
[2024-08-20 22:03] VITALS: BP 117/75; PULSE 71; RESP 18; TEMP 98; O2SAT 99
[2024-08-21 00:03] LABS: ANION GAP 8 mmol/L (8-16); CALCIUM, TOTAL 9.4 mg/dL (8.8-10.5); CARBON DIOXIDE 29 mmol/L (22-29); CHLORIDE 99 mmol/L (98-107); CREATININE 0.89 mg/dL (0.60-1.30); GLOMERULAR FILTR. RATE CALC > 60 mL/min (>60); GLUCOSE,RANDOM 74 mg/dL (70-110); POTASSIUM 3.6 mmol/L (3.5-5.1); SODIUM SERUM 136 mmol/L (136-145); UREA NITROGEN, BLOOD 25 mg/dL (7-18)
[2024-08-21 00:04] LABS: BASOPHILS % (AUTO) 0.8 % (0.0-2.0); EOSINOPHILS % (AUTO) 2.2 % (1.0-6.0); HEMATOCRIT 40.6 % (36-46); HEMOGLOBIN 13.3 g/dL (12.0-16.0); LYMPHOCYTES # (AUTO) 2.9 K/uL (1.0-4.8); LYMPHOCYTES % (AUTO) 40.8 % (22.0-44.0); MEAN CORPUSCULAR HEMOGLOBIN 31.8 pg (26.0-34.0); MEAN CORPUSCULAR HGB CONC 32.6 G/dL (31.0-37.0); MEAN CORPUSCULAR VOLUME 97 fL (80-100); MONOCYTES # (AUTO) 0.6 K/uL (0.1-1.0); MONOCYTES % (AUTO) 8.4 % (2.0-9.0); NEUTROPHILS # (AUTO) 3.4 K/uL (1.8-7.7); NEUTROPHILS % (AUTO) 47.8 % (40.0-70.0); PLATELET COUNT (AUTO) 232 K/uL (150-450); RED BLOOD CELL COUNT(AUTO) 4.17 MIL/uL (4.00-5.20); RED CELL DISTRIBUTION WIDTH 13.5 % (11.5-14.5); WHITE BLOOD COUNT (AUTO) 7.1 K/uL (4.5-11.0)
[2024-08-21] MEDS: KETOROLAC TROMETHAMINE 30 MG/ML VIAL IM ONE (00:04)
[2024-08-21] MEDS: ACETAMINOPHEN 325 MG TABLET PO ONE (00:04)
[2024-08-21 00:14] LABS: TROPONIN I-HIGH SENSITIVITY Less Than 4 ng/L (<51)
[2024-08-21] MEDS ORDERED: IBUP-1492 PO ×2 (00:34→17:41)
[2024-08-21] MEDS ORDERED: ACET-2247 PO (17:41)
== END 2024-08-21 00:44 | disposition home or self-care (01) ==
LOC: EMS 21:56
DX: M54.9 Dorsalgia, unspecified (principal); R07.9 Chest pain, unspecified; F12.90 Cannabis use, unspecified, uncomplicated
CPT/HCPCS: 99285; 71045; 80048; 84484; 84703; 85025; 36415; 93005; 96372; J1885

== ENCOUNTER → 2024-11-16 | Emergency (ER) | payer OTHER ==
[~2024-11-16] VITALS: Ht 157.5 cm; Wt 63.6 kg
[~2024-11-16] MED LIST changes: +IBUP-1492 PO; +OXYMETAZOLINE HCL 0.05% 15 ML NASAL SPRAY NASAL ONE; +PERCT PO
[2024-11-16] MEDS: IBUPROFEN 600 MG TABLET PO ONE (07:37)
[2024-11-16 08:10] VITALS: BP 116/87; PULSE 72; RESP 18; TEMP 97.6; O2SAT 100
[2024-11-16] MEDS: OxyCODONE HCL/ACETAMINOPHEN 5-325 MG TABLET PO ONE (09:37)
== END | disposition home or self-care (01) ==
LOC: EMS 07:36
DX: S02.2XXA Fracture of nasal bones, initial encounter for closed fracture (principal); S80.212A Abrasion, left knee, initial encounter; S50.312A Abrasion of left elbow, initial encounter; F12.90 Cannabis use, unspecified, uncomplicated; Y04.0XXA Assault by unarmed brawl or fight, initial encounter; Y93.89 Activity, other specified; Y92.89 Other specified places as the place of occurrence of the external cause; Y99.8 Other external cause status
CPT/HCPCS: 70486; 99284; Z7502; Z7610

== ENCOUNTER 2025-03-28 08:45 | Emergency (ER) | payer OTHER ==
[~2025-03-28] VITALS: Ht 157.5 cm; Wt 65.9 kg
[~2025-03-28 08:45] MED LIST changes: -OXYMETAZOLINE HCL 0.05% 15 ML NASAL SPRAY NASAL ONE
[2025-03-28 10:40] LABS: APPEARANCE,URINE HAZY (CLEAR); GLUCOSE, URINE (UA) NEGATIVE (NEGATIVE); LEUKOCYTE ESTERASE ,URINE NEGATIVE (NEGATIVE); NITRATE,URINE POSITIVE (NEGATIVE); OCCULT BLOOD,URINE NEGATIVE (NEGATIVE); PH,URINE DRUG SCREEN 6.0 (5.0-8.0); SPECIFIC GRAVITIY, URINE 1.026 (1.003-1.030)
[2025-03-28 10:41] LABS: PLATELET COUNT (AUTO) 185 K/uL (150-450); RED BLOOD CELL COUNT(AUTO) 4.09 MIL/uL (4.00-5.20); RED CELL DISTRIBUTION WIDTH 12.7 % (11.5-14.5); WHITE BLOOD COUNT (AUTO) 7.0 K/uL (4.5-11.0)
[2025-03-28 10:44] LABS: COVID AG,FIA SOURCE NASAL SWAB
[2025-03-28 10:45] LABS: SQUAMOUS EPITHELIAL CELL,UR Moderate /LPF (None Seen)
[2025-03-28 10:52] LABS: CALCIUM, TOTAL 8.4 mg/dL (8.8-10.5); CREATININE 0.88 mg/dL (0.60-1.30); GLOMERULAR FILTR. RATE CALC > 60 mL/min (>60); GLUCOSE,RANDOM 86 mg/dL (70-110); SODIUM SERUM 138 mmol/L (136-145); UREA NITROGEN, BLOOD 11 mg/dL (7-18)
[2025-03-28 11:02] LABS: ALCOHOL, URINE DRUG SCREEN NEGATIVE (NEGATIVE); AMPHET/METH SCREEN,URINE NEGATIVE (NEGATIVE); BARBITURATE SCREEN, URINE NEGATIVE (NEGATIVE); CANNABINOID SCREEN,URINE POSITIVE (NEGATIVE); COCAINE SCREEN,URINE NEGATIVE (NEGATIVE); METHADONE SCREEN, URINE NEGATIVE (NEGATIVE)
[2025-03-28 11:03] LABS: TROPONIN I-HIGH SENSITIVITY 4 ng/L (<51)
[2025-03-28 11:37] LABS: SARS-COV2 (COVID) ANTIGEN,FIA Negative (Negative)
[2025-03-28 13:55] VITALS: BP 104/89; PULSE 98; RESP 18; TEMP 97.5; O2SAT 100
== END 2025-03-28 14:03 | disposition home or self-care (01) ==
LOC: EMS 08:45
DX: F41.9 Anxiety disorder, unspecified (principal); R07.89 Other chest pain; R06.02 Shortness of breath; F12.90 Cannabis use, unspecified, uncomplicated; Z98.82 Breast implant status; Z98.890 Other specified postprocedural states; Z79.899 Other long term (current) drug therapy; Z20.822 Contact with and (suspected) exposure to COVID-19
CPT/HCPCS: 99285; 71045; 87426; 80048; 81001; 84484; 84703; 85025; 87077; 87086; 36415; 93005; 80307; G0480